=== PATIENT | female | born 1955 | race Caucasian/White ===

== ENCOUNTER 2017-03-30 23:52 | Emergency (ER) | payer OTHER ==
[~2017-03-30] VITALS: Ht 162.6 cm; Wt 127.8 kg
[~2017-03-30 23:52] MED LIST: BENICAR40 MG PO; BIOTIN1000 MICRO PO; LANTUS 3 M100 UNITS1 SC; METHOTREXATE2.5 MG PO; TOPROL XL100 MG PO; VITAMIN D2000 UNIT PO
[2017-03-31] MEDS ORDERED: PERCOCET 5/31 TABLET PO (00:44)
[2017-03-31] MEDS ORDERED: VALTREX1000 MG PO (00:44)
[2017-03-31] MEDS ORDERED: ZOFRAN ODT4 MG PO (00:44)
[2017-03-31] MEDS ORDERED: LIDODERM 5% P1 PATCH TD (00:44)
[2017-03-31 01:00] VITALS: BP 186/87
== END 2017-03-31 01:05 | disposition home or self-care (01) ==
LOC: EXP 23:52 → EME 23:52 → EXP 03-31 01:05
DX: B02.9 Zoster without complications (principal); I10 Essential (primary) hypertension; E11.9 Type 2 diabetes mellitus without complications; Z79.4 Long term (current) use of insulin; K21.9 Gastro-esophageal reflux disease without esophagitis; J45.909 Unspecified asthma, uncomplicated; F32.9 Major depressive disorder, single episode, unspecified; M06.9 Rheumatoid arthritis, unspecified
CPT/HCPCS: 99281; 99284

== ENCOUNTER → 2017-05-02 | Outpatient (CLI) | payer OTHER ==
[~2017-05-02] MED LIST changes: +LIDODERM 5% P1 PATCH TD; +PERCOCET 5/31 TABLET PO; +VALTREX1000 MG PO; +ZOFRAN ODT4 MG PO
== END | disposition home or self-care (01) ==
LOC: RAD 13:37
DX: M16.0 Bilateral primary osteoarthritis of hip (principal)
CPT/HCPCS: 73502

== ENCOUNTER → 2017-08-29 | Outpatient (CLI) | payer OTHER | END | disposition home or self-care (01) | LOC: RAD 13:37 | DX: M17.11 Unilateral primary osteoarthritis, right knee (principal); M25.861 Other specified joint disorders, right knee | CPT/HCPCS: 73560 ==